=== PATIENT | female | born 1970 | race American Indian/Alaskan Native ===

== ENCOUNTER 2016-04-24 06:00 | Day surgery (SDC) | payer MEDICAID ==
--- NOTE | 2016-04-23 16:53 | Short Stay Summary ---
Short Stay Documentation Date of service: 04/24/16 Narrative H&P: 45y/o with dysfunctional uterine bleeding. The patient is currently using Essure for contraception. She has attempted medical management without significant improvement in symptoms. Patient has been reassessed/reevaluated/re-examined. H&P has been reviewed. No interval changes. - History Principal diagnosis: dysfunctional uterine bleeding H&P: obtained from office Past Medical History: No medical history Past Surgical History: Other (exploratory laparotomy; Essure; ankle surgery) Social history: - Allergies and Medications Current Medications: Allergies No Known Allergies Allergy (Unverified 04/19/16 14:05) Home Medications Medication Instructions Recorded Confirmed Last Taken Type No Known Home Medications [No 04/19/16 04/19/16 Unknown History Reported Home Medications] - Physical exam General appearance: no acute distress Integumentary: no rash HEENT: Atraumatic Lungs: Clear to auscultation Breasts: deferred Heart: Regular rate Gastrointestinal: normal Female Genitourinary: deferred Rectal Exam: deferred Extremities: no ischemia Neurological: Normal gait - Brief post op/procedure progress note Date of procedure: 04/24/16 Pre-op diagnosis: dysfunctional uterine bleeding Post-op diagnosis: same Procedure: Hysteroscopy Endometrial ablation via NovaSure Anesthesia: CHECO Surgeon: SOCORRO SINGH Estimated blood loss: minimal Pathology: none Condition: stable - Hospital course Hospital course: The patient was admitted the day of surgery underwent NovaSure for dysfunctional uterine bleeding. Please see operative note for details of surgery. Postoperative course was uneventful. - Disposition Condition at discharge: Good Disposition: DISCHARGED TO HOME OR SELFCARE Short Stay Discharge Plan Activity: other (pelvic rest for 1 week) Diet: regular Additional Instructions: Follow-up is not required Patient may follow up as needed in 2-4 weeks Prescriptions: Ibuprofen [Motrin] 800 mg PO Q8HR PRN #60 tablet PRN Reason: Pain oxyCODONE /ACETAMINOPHEN [Percocet 5/325] 1 tab PO Q6HR PRN #30 tablet PRN Reason: Pain
[2016-04-24] MEDS ORDERED: NACL BACTERIOSTATIC INFILTRATI ONE (06:39)
[2016-04-24] MEDS ORDERED: VERSED IV NR (07:00)
[2016-04-24] MEDS ORDERED: PEPCID PO NR (07:00)
[2016-04-24] MEDS ORDERED: NACL 0.9% 1000 ML 1,000 ML IV SCH (07:00)
--- NOTE | 2016-04-24 07:13 | Anesthesia Consultation ---
Anesthesia Consult and Med Hx Date of service: 04/24/16 - Airway Anesthetic Teeth Evaluation: Good ROM Head & Neck: Adequate Mental/Hyoid Distance: Adequate Mallampati Class: Class I Intubation Access Assessment: Good - Pulmonary Exam CTA: Yes (blbs clear) - Cardiac Exam Cardiac Exam: RRR - Pre-Operative Health Status ASA Pre-Surgery Classification: ASA1 Proposed Anesthetic Plan: General - Pulmonary Hx Smoking: No Hx Asthma: No Hx Respiratory Symptoms: No SOB: No COPD: No Home Oxygen Therapy: No Hx Pneumonia: No Hx Sleep Apnea: No - Cardiovascular System Hx Hypertension: No Hx Coronary Artery Disease: No Hx Heart Attack/AMI: No Hx Angina: No Hx Percutaneous Transluminal Coronary Angioplasty (PTCA): No Hx Cardia Arrhythmia: No Hx Pacemaker: No Hx Internal Defibrillator: No Hx Valvular Heart Disease: No Hx Heart Murmur: No Hx Peripheral Vascular Disease: No - Central Nervous System Hx Neuromuscular Disorder: No Hx Seizures: No CVA: No Hx Back Pain: No Hx Psychiatric Problems: No - Gastrointestinal Hx Ulcer: No Hx Gastroesophageal Reflux Disease: No - Endocrine Hx Renal Disease: No Hx End Stage Renal Disease: No Hx Cirrhosis: No Hx Liver Disease: No Hx Insulin Dependent Diabetes: No Hx Non-Insulin Dependent Diabetes: No Hx Thyroid Disease: No - Hematic Hx Anemia: No Hx Sickle Cell Disease: No - Other Systems Hx Alcohol Use: No Hx Substance Use: No Hx Cancer: No Hx Obesity: No
--- NOTE | 2016-04-24 07:13 | Anesthesia Day of Surgery ---
Anesthesia Day of Surgery - Day of Surgery Patient Examined: Yes Patient H&P Reviewed: Yes Patient is NPO: Yes Beta Blockers: No (n/a) Cardiac Clearance: No (n/a) Pulmonary Clearance: No (n/a)
[2016-04-24] MEDS ORDERED: TORADOL IV PRN (07:14)
[2016-04-24] MEDS ORDERED: SUBLIMAZE IV PRN (07:14)
[2016-04-24] MEDS ORDERED: ZOFRAN IV PRN (07:14)
[2016-04-24] MEDS ORDERED: PERCOCET 5/325 PO PRN (07:14)
[2016-04-24] MEDS ORDERED: DILAUDID ONE (07:20)
[2016-04-24] MEDS ORDERED: DIPRIVAN 10 MG/ML IV ONE (07:20)
[2016-04-24] MEDS ORDERED: ZOFRAN ONE (08:10)
[2016-04-24] MEDS ORDERED: DECADRON ONE (08:10)
[2016-04-24] MEDS ORDERED: TORADOL ONE (08:11)
[2016-04-24] MEDS ORDERED: XYLOCAINE MPF 2% ONE (08:11)
--- NOTE | 2016-04-24 08:41 | Operative Report ---
Operative Report Operative Report: Date of procedure: 04/24/2014 Pre-operative diagnosis: Dysfunctional uterine bleeding Post-operative diagnosis: Same as above Procedure name(s): Hysteroscopy; endometrial ablation via NovaSure Surgeon: Lexus oG M.D. Splitter Hand: None Anesthesia: General endotracheal anesthesia Findings normal endometrial cavity Indication: 45-year-old 035 with a history of dysfunctional uterine bleeding. The patient has elected to undergo surgical management of her bleeding. Procedure The patient was taken to the operating room and given general tracheal anesthesia without complication. The patient was prepped and draped in a normal sterile fashion. A bivalve speculum was placed in the patient's vagina single-tooth tenaculums placed on the anterior lip of the cervix. The cervical os was dilated with graduated dilators. A uterine sound was inserted. The hysteroscope was then placed. Insufflation of the uterine cavity was performed with normal saline. Gen. survey of the uterine cavity revealed normal endometrial cavity. The hysteroscope was then removed. The NovaSure device was then inserted. The endometrial length was 6.0 cm and the uterine width was 4.4 cm. The device was engaged and it passed the surveillance of the uterine cavity. The NovaSure device was then deployed with a energy of 145 W that lasted for 1 minute 19 seconds. The NovaSure device was then removed. The hysteroscope was again reinserted. There was evidence of charring of the endometrial surface. The remainder of the vaginal instruments were then removed atraumatically. The patient was then successfully extubated taken to the recovery room. All sponge laps and needle counts were correct 2.
[2016-04-24] MEDS ORDERED: NACL 0.9% IR ONE ×2 (08:55)
[2016-04-24] MEDS ORDERED: SILVER NITRATE TP ONE (08:55)
[2016-04-24 09:40] VITALS: BP 125/74
--- NOTE | 2016-04-24 10:38 | Post Anesthesia Evaluation ---
- Post Anesthesia Evaluation Patient Participated: Yes Airway Patent: Yes Stable Respiratory Function: Yes Nausea/Vomiting: No Temp > 96.8F: Yes Pain Manageable: Yes Adequeate Hydration: Yes Anesthesia Complications: No Block Receding Appropriately: Not Applicable Patient on Ventilator: No
== END 2016-04-24 10:10 | disposition home or self-care (01) ==
LOC: OR 06:00
PROVIDERS: ATTEND Obstetrics & Gynecology
DX: N93.8 Other specified abnormal uterine and vaginal bleeding (principal)
CPT/HCPCS: 58563; 81025; A4217; J1100; J1170; J1885; J2250; J2405; J2704; J7030

== ENCOUNTER 2017-10-07 20:32 | Emergency (ER) | payer MEDICAID ==
[2017-10-07 21:14] VITALS: BP 129/79
--- NOTE | 2017-10-07 22:40 | XRay Report ---
FINAL REPORT PROCEDURE: XR KNEE 3V LT TECHNIQUE: Left knee, three views HISTORY: pain/swelling r/t injury COMPARISON: No prior studies are available for comparison. FINDINGS: No acute fracture or dislocation is seen. No focal osseous lesions. No joint effusion. IMPRESSION: No acute osseous abnormality is seen
--- NOTE | 2017-10-08 00:09 | Emergency Department Report ---
ED Lower Extremity HPI - General Chief Complaint: Extremity Injury, Lower Stated Complaint: LT KNEE PAIN Time Seen by Provider: 10/08/17 00:01 Source: patient Mode of arrival: Ambulatory Limitations: No Limitations - History of Present Illness Initial Comments: 47-year-old -[place] female presents to the emergency room stating that she thinks she twisted her left knee last night. Patient has no swelling in gait is normal. Patient reports that the pain is more when she walks up steps. Patient has not taken anything for pain. Patient reports this happened about 9:15 on Friday night. 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 She has no past medical history currently takes no medications on a daily basis and has no known drug allergies. MD Complaint: knee injury -: days(s) (1) Time: 21:15 Injury: Knee: Left (Friday) Type of Injury: unknown Place: home Severity scale (0 -10): 7 Improves With: other (has not taken anything for pain) Worsens With: other (walking up steps) Associated Symptoms: denies: snap/pop sensation, swelling, numbness, unable to bear weight - Related Data Previous Rx's Medication Instructions Recorded Last Taken Type Ibuprofen [Motrin] 800 mg PO Q8HR PRN #60 tablet 04/24/16 Unknown Rx oxyCODONE /ACETAMINOPHEN [Percocet 1 tab PO Q6HR PRN #30 tablet 04/24/16 Unknown Rx 5/325] Allergies Allergy/AdvReac Type Severity Reaction Status Date / Time No Known Allergies Allergy Unverified 04/19/16 14:05 ED Review of Systems ROS: Stated complaint: LT KNEE PAIN Other details as noted in HPI Comment: All other systems reviewed and negative Musculoskeletal: arthralgia (left knee pain intermittent) ED Past Medical Hx - Past Medical History Previous Medical History?: No Hx Hypertension: No Hx Heart Attack/AMI: No Hx Liver Disease: No Hx Renal Disease: No Hx Sickle Cell Disease: No Hx Seizures: No Hx Asthma: No Hx COPD: No Hx HIV: No - Surgical History Hx Pacemaker: No Hx Internal Defibrillator: No Hx Breast Surgery: Yes (right breast biopsy) Additional Surgical History: right knee surgery,tubiligation - Social History Smoking Status: Never Smoker Substance Use Type: None - Medications Home Medications: Home Medications Medication Instructions Recorded Confirmed Last Taken Type Ibuprofen [Motrin] 800 mg PO Q8HR PRN #60 tablet 04/24/16 Unknown Rx oxyCODONE /ACETAMINOPHEN [Percocet 1 tab PO Q6HR PRN #30 tablet 04/24/16 Unknown Rx 5/325] ED Physical Exam - General Limitations: No Limitations General appearance: alert, in no apparent distress - Head Head exam: Present: atraumatic, normocephalic - Expanded Lower Extremity Exam Left Upper Leg exam: Present: normal inspection, full ROM. Absent: tenderness, swelling Knee exam: Present: full ROM. Absent: tenderness, swelling, abrasion, deformity , crepidus Lower Leg exam: Present: normal inspection, full ROM. Absent: tenderness, swelling, abrasion Gait: Positive: observed and normal - Neurological Exam Neurological exam: Present: alert, oriented X3 - Psychiatric Psychiatric exam: Present: normal affect, normal mood - Skin Skin exam: Present: warm, dry, intact, normal color. Absent: rash ED Course Vital Signs 10/07/17 21:09 Temperature 98.8 F Pulse Rate 65 Respiratory 18 Rate Blood Pressure 129/79 O2 Sat by Pulse 100 Oximetry ED Lower Extremity MDM - Radiology Data Radiology results: report reviewed, image reviewed FINAL REPORT PROCEDURE: XR KNEE 3V LT TECHNIQUE: Left knee, three views HISTORY: pain/swelling r/t injury COMPARISON: No prior studies are available for comparison. FINDINGS: No acute fracture or dislocation is seen. No focal osseous lesions. No joint effusion. IMPRESSION: No acute osseous abnormality is seen Transcribed By: [facility] Dictated By: LORENZA COOPER M.D. Electronically Authenticated By: LORENZA COOPER M.D. Signed Date/Time: 10/07/172238 DD/ 38 TD/TT: 10/07/172238 - Medical Decision Making Patient has been evaluated by this provider fast track. Patient declines any pain medication. X-rays were ordered of her left knee which shows no abnormalities. Discharge patient home with referral to orthopedics if symptoms persist or gets worse. Critical care attestation.: If time is entered above; I have spent that time in minutes in the direct care of this critically ill patient, excluding procedure time. ED Disposition Clinical Impression: Left knee pain Qualifiers: Chronicity: acute Qualified Code(s): M25.562 - Pain in left knee Disposition: DC-01 TO HOME OR SELFCARE Is pt being admited?: No Does the pt Need Aspirin: No Condition: Stable Additional Instructions: Tylenol and or Motrin is good for pain. If your symptoms persist or gets worse please follow-up with an orthopedic provider. All x-rays were negative 80 fractures or dislocation or swelling. Referrals: PRIMARY CAREMD [Primary Care Provider] - 3-5 Days ESA BARCLAY MD [Staff Physician] - 3-5 Days Forms: Work/School Release Form(ED)
== END 2017-10-08 00:15 | disposition home or self-care (01) ==
LOC: ED 20:32
DX: M25.562 Pain in left knee (principal); Z98.51 Tubal ligation status
CPT/HCPCS: 99283